=== PATIENT | female | born 1995 | race Asian ===

== ENCOUNTER 2017-10-25 15:41 | Emergency (ER) | payer OTHER ==
[~2017-10-25] VITALS: Ht 172.7 cm; Wt 77.1 kg
[2017-10-25 15:45] VITALS: TEMP 98.1
[2017-10-25 17:42] LABS: PLATELET COUNT 258 K/uL (152-353)
[2017-10-25 18:11] LABS: PARTIAL THROMBOPLASTIN TIME 25.8 SECONDS (24.5-33.6)
[2017-10-25 18:12] LABS: POTASSIUM 3.2 mmol/L (3.6-5.2); SODIUM 137 mmol/L (136-145)
[2017-10-25 19:00] VITALS: BP 122/77
== END 2017-10-25 19:02 | disposition home or self-care (01) ==
LOC: ED 15:41
DX: R07.89 Other chest pain (principal)
CPT/HCPCS: 36415; 80053; 80307; 82550; 84484; 85027; 85610; 85730; 93005; 96374; 99284; J2930

== ENCOUNTER 2020-10-23 09:53 | Outpatient (CLI) | payer OTHER | END 2020-10-23 22:18 | disposition home or self-care (01) | LOC: RAD 09:53 | PROVIDERS: ATTEND Nurse Practitioner Family | DX: U07.1 COVID-19 (principal) ==

== ENCOUNTER 2021-10-04 10:01 | Outpatient (CLI) | payer OTHER | END 2021-10-04 18:57 | disposition home or self-care (01) | LOC: RAD 10:01 | PROVIDERS: ATTEND Nurse Practitioner Family | DX: R76.11 Nonspecific reaction to tuberculin skin test without active tuberculosis (principal) ==

== ENCOUNTER 2021-12-03 10:00 | Emergency (ER) | payer OTHER ==
[~2021-12-03] VITALS: Ht 172.7 cm; Wt 66.2 kg
[2021-12-03 10:55] VITALS: BP 143/87; TEMP 99.3
== END 2021-12-03 10:55 | disposition home or self-care (01) ==
LOC: ED 10:00
DX: J06.9 Acute upper respiratory infection, unspecified (principal); Z20.822 Contact with and (suspected) exposure to COVID-19
CPT/HCPCS: 87502; 87635; 87651; 99283; U0003

== ENCOUNTER 2021-12-14 10:08 | Outpatient (CLI) | payer OTHER | END 2021-12-14 18:51 | disposition home or self-care (01) | LOC: RESP 10:08 | PROVIDERS: ATTEND Nurse Practitioner Family | DX: R00.2 Palpitations (principal) ==

== ENCOUNTER 2022-06-15 17:36 | Emergency (ER) | payer OTHER ==
[~2022-06-15] VITALS: Ht 172.7 cm; Wt 68.0 kg
[2022-06-15 17:46] VITALS: TEMP 98.1
[2022-06-15 18:55] VITALS: BP 122/70
== END 2022-06-15 18:55 | disposition home or self-care (01) ==
LOC: ED 17:36
DX: J20.9 Acute bronchitis, unspecified (principal); J04.0 Acute laryngitis; Z20.822 Contact with and (suspected) exposure to COVID-19
CPT/HCPCS: 87502; 87635; 87651; 99283; U0003